=== PATIENT | female | born 1955 | race Caucasian/White ===

== ENCOUNTER 2020-11-12 05:44 | Observation (INO) ==
--- NOTE | 2020-10-07 16:36 | PAT Medication Instructions ---
Medication Instructions Date of Service October 07, 2020 Home Medications acetaminophen [Tylenol Extra Strength] 1,000 mg PO BID PRN albuterol sulfate [Ventolin HFA] 2 puff INHALATION Q6H PRN amlodipine 5 mg PO QAM aspirin [Aspir-81] 81 mg PO HS atorvastatin 10 mg PO HS citalopram 10 mg PO QAM fexofenadine [Gabi] 180 mg PO QAM furosemide 40 mg PO QAM levothyroxine 112 mcg PO QAM losartan-hydrochlorothiazide 1 tab PO QAM multivitamin 1 tab PO QAM pantoprazole 40 mg PO BID DO NOT take the morning of surgery fexofenadine [Gabi] 180 mg PO QAM furosemide 40 mg PO QAM losartan-hydrochlorothiazide 1 tab PO QAM multivitamin 1 tab PO QAM Take morning of surgery With a small sip of water, OTHERWISE NOTHING TO EAT OR DRINK AFTER MIDNIGHT: acetaminophen [Tylenol Extra Strength] 1,000 mg PO BID PRN (if needed, may be taken up to four hours before surgery) albuterol sulfate [Ventolin HFA] 2 puff INHALATION Q6H PRN (if needed, and bring with you to the hospital) amlodipine 5 mg PO QAM citalopram 10 mg PO QAM levothyroxine 112 mcg PO QAM pantoprazole 40 mg PO BID Take evening before surgery acetaminophen [Tylenol Extra Strength] 1,000 mg PO BID PRN (if needed) albuterol sulfate [Ventolin HFA] 2 puff INHALATION Q6H PRN (if needed) aspirin [Aspir-81] 81 mg PO HS atorvastatin 10 mg PO HS pantoprazole 40 mg PO BID Other Notes If you have any questions please call us at [phone] or [phone] or [phone] or [phone]
--- NOTE | 2020-10-08 12:14 | Anesthesiology Consultation ---
Date of Service October 08, 2020 Assessment & Plan (1) Encounter for pre-operative examination: COVID Status: As of 10/08 assessment, patient denies travel to endemic area, known exposure/sick contacts, or symptoms of COVID19. Patient instructed that they and their household members must follow strict social distancing guidelines, wear a mask in public and avoid travel/events/gatherings for 14 days prior to surgery. Preoperative COVID19 testing to be completed prior to surgery per surgeon's arrangements (11/07). Patient made aware to self-isolate as much as possible between COVID testing and surgery. Chart Review Chart Review: Acceptable Risk for Surgery and Patient seen in Pre Admission Testing Teaching & Discussion Instructed NPO after midnight before surgery, except medications with 15 cc of water. Medication instructions provided according to the PAT guidelines. History Surgery Operation Date: 11/12/20 08:35 Proposed Procedures p Right Total Knee Arthroplasty - Kemal Mtz DO Height/Weight Height: 5 ft 1 in Weight: 95.7 kg Allergies Allergy/AdvReac Type Severity Reaction Status Date / Time Penicillins Allergy Unknown HIVES,RASH Verified 10/06/20 13:29 wheat Allergy Unknown GI Verified 10/06/20 13:53 UPSET,DIARRHEA-CELIAC DISEASE Medications Home Medications Medication Instructions Recorded Confirmed Last Taken acetaminophen [Tylenol Extra 1,000 mg PO BID PRN 10/06/20 10/06/20 Unknown Strength] albuterol sulfate [Ventolin HFA] 2 puff INHALATION Q6H PRN 10/06/20 10/06/20 Unknown amlodipine 5 mg PO QAM 10/06/20 10/06/20 Unknown aspirin [Aspir-81] 81 mg PO 10/06/20 10/06/20 Unknown atorvastatin 10 mg PO 10/06/20 10/06/20 Unknown citalopram 10 mg PO QAM 10/06/20 10/06/20 Unknown fexofenadine [Gabi] 180 mg PO QAM 10/06/20 10/06/20 Unknown furosemide 40 mg PO QAM 10/06/20 10/06/20 Unknown levothyroxine 112 mcg PO QAM 10/06/20 10/06/20 Unknown losartan-hydrochlorothiazide 1 tab PO QAM 10/06/20 10/06/20 Unknown multivitamin 1 tab PO QAM 10/06/20 10/06/20 Unknown pantoprazole 40 mg PO BID 10/06/20 10/06/20 Unknown Past Medical History Medical History (Updated 10/08/20 @ 16:12 by Da Perez) Asthma Using inhaler only PRN, on avg once daily. Celiac disease GERD (gastroesophageal reflux disease) Hiatal hernia Hyperlipidemia Hypertension Hypothyroidism Neck pain FULL ROM Osteoarthritis Sleep apnea CPAP, pt reports using every night. Exercise / Class Metabolic Activity II 4-5 Yardwork/Stairs/Walk up hill (Limited by knee pain, some ELENA if more than 6 stairs, no chest pain, does stairs daily at home or uses ramp.) Past Family History Family History Father Family history of diabetes mellitus Mother Family history of diabetes mellitus Son Family history of diabetes mellitus Past Surgical History Surgical History Chronic back pain NECK-HX NERVE ABLATION History of carpal tunnel release RIGHT History of colonoscopy History of esophagogastroduodenoscopy (EGD) History of hand surgery TENDON SURGERY History of herniorrhaphy History of open reduction and internal fixation (ORIF) procedure LEFT ARM-METAL REMAINS History of total knee replacement LEFT-2016 [facility] Nausea and vomiting after administration of anesthetic agent Past Anesthesia History No Hx of Anesthesia Complications and No Family Hx of Anesthesia Complications History of PONV No Hx of Motion Sickness and History of PONV (PONV with GA. With SAB had nausea only.) Social History Smoking Status: Former smoker Do You Dip or Chew Tobacco: No Smoking End Date: QUIT 20 YRS AGO Hx Alcohol Use: No Hx Substance Use: No Review of Systems Pt denies any recent chest pain, shortness of breath, palpitations, cough, fever, URI. + acid reflux if she eats anything after 4 PM. Physical Exam Vital Signs BP: 131/78 P: 84bpm SPO2: 97% RA T: 98.4 F R: 15 ENMT Mouth: + dental restorations (crowns); no chipped teeth and no loose teeth Thyromental Distance: > or= 3.5 Finger Breadths Mallampati Class: I Neck + short neck; neck extension not limited Respiratory normal respiratory effort, lungs clear to auscultation Cardiovascular RRR, no murmur, no edema Testing Laboratory Results 10/08/20 12:28 10/08/20 12:28 PT 10.1 Seconds (9.0-12.0) 10/08/20 12:28 INR 1.0 (0.9-1.1) 10/08/20 12:28 APTT 25.9 Seconds (21.0-31.0) 10/08/20 12:28 Hemoglobin A1c 5.5 % (4.5-5.6) 10/08/20 12:28 Urine Color Yellow 10/08/20 12:28 Urine Appearance Clear (Clear) 10/08/20 12:28 Urine pH 7.5 (4.5-7.5) 10/08/20 12:28 Ur Specific [place] 1.007 (1.000-1.030) 10/08/20 12:28 Urine Protein Negative (Negative) 10/08/20 12:28 Urine Glucose (UA) Negative (Negative) 10/08/20 12:28 Urine Ketones Negative (Negative) 10/08/20 12:28 Urine Nitrite Negative (Negative) 10/08/20 12:28 Ur Leukocyte Esterase Trace (Negative) H 10/08/20 12:28 Urine WBC (Auto) 1-5 /hpf (0-5) 10/08/20 12:28 Urine RBC (Auto) 0-4 /hpf (0-4) 10/08/20 12:28 U Hyaline Cast (Auto) 0 /lpf (0-5) 10/08/20 12:28 U Epithel Cells (Auto) 0-5 /lpf (0-5) 10/08/20 12:28 Urine Bacteria (Auto) Negative (Negative) 10/08/20 12:28 Blood Type A Positive 10/08/20 12:28 Antibody Screen NEGATIVE 10/08/20 12:28 Electrocardiogram Date: 10/08/20 Findings: + NSR @ (70bpm) Chest X-Ray Date: 10/08/20 Findings: + NAD
--- NOTE | 2020-10-08 13:06 | XRay Report ---
XR chest Pre-admission PA/Lat CLINICAL HISTORY: Preoperative evaluation. COMPARISON STUDY: No previous studies for comparison. FINDINGS: Lung volumes are normal. Lungs are clear. There is no pneumothorax or pleural effusion. Car diac size is normal. Mediastinal contours are normal. There is no evidence for pulmonary edema. Incid ental note is made of partially visualized internal fixation hardware within the left humerus. IMPRESSION: No acute cardiopulmonary findings. ACT 112: Negative or not required by law. Electronically signed by: Kris Irvin M.D. 10/08/2020 1:04 PM
[2020-10-08 13:16] LABS: Basophils # (auto) 0.05 K/uL (0-0.2); Basophils % (auto) 0.7 %; Eosinophils # (auto) 0.11 K/uL (0-0.5); Eosinophils % (auto) 1.4 %; Hemoglobin 13.2 g/dL (12.0-16.0); Immature Granulocytes # (auto) 0.03 K/uL (0.00-0.02); Immature Granulocytes % (auto) 0.4 %; Lymphocytes # (auto) 1.96 K/uL (1.2-3.4); Lymphocytes % (auto) 25.5 %; Mean Corpuscular Hemoglobin 31.2 pg (25-34); Mean Corpuscular Hgb Conc 33.8 g/dL (32-36); Mean Corpuscular Volume 92.2 fL (80-100); Mean Platelet Volume 10.6 fL (7.4-10.4); Monocytes # (auto) 0.56 K/uL (0.11-0.59); Monocytes % (auto) 7.3 %; Neutrophils # (auto) 4.97 K/uL (1.4-6.5); Neutrophils % (auto) 64.7 %; Platelet Count 356 K/uL (130-400); RDW Coefficient of Variation 13.2 % (11.5-14.5); RDW Standard Deviation 44.5 fL (36.4-46.3); Red Blood Count 4.23 M/uL (4.2-5.4); White Blood Count 7.68 K/uL (4.8-10.8)
[2020-10-08 13:27] LABS: Partial Thromboplastin Time 25.9 Seconds (21.0-31.0); Prothrombin Time 10.1 Seconds (9.0-12.0)
[2020-10-08 13:29] LABS: Albumin Level 3.9 gm/dl (3.4-5.0); BUN Creatinine Ratio 13.4 (10-20); Calcium 9.9 mg/dl (8.5-10.1); Creatinine Clr Calc Pharmacy 63.4 ml/min; Est GFR (African American) 75.7; Est GFR (Non-African American) 65.3; Potassium 3.8 mmol/L (3.5-5.1)
[2020-10-08 13:35] LABS: Appearance Urine Clear (Clear); Bacteria Urine Automated Negative (Negative); Bilirubin Urine Negative (Negative); Blood Urine Negative (Negative); Cast Urine Automated 0 /lpf (0-5); Color Urine Yellow; Epithelial Cell Urine Auto 0-5 /lpf (0-5); Glucose Urine UA Negative (Negative); Ketones Urine Negative (Negative); Leukocyte Esterase Urine Trace (Negative); Nitrite Urine Negative (Negative); Protein Urine Negative (Negative); RBC Urine Automated 0-4 /hpf (0-4); Specific Gravity Urine 1.007 (1.000-1.030); Urobilinogen Urine Negative (Negative); pH Urine 7.5 (4.5-7.5)
[2020-10-08 14:01] LABS: Estimated Average Glucose 111 mg/dl; Hemoglobin A1C 5.5 % (4.5-5.6)
--- NOTE | 2020-10-08 15:33 | Electrocardiogram Report ---
Test Reason : Blood Pressure : / mmHG Vent. Rate : 070 BPM Atrial Rate : 070 BPM P-R Int : 158 ms QRS Dur : 084 ms QT Int : 414 ms P-R-T Axes : 063 054 061 degrees QTc Int : 447 ms Normal sinus rhythm Normal ECG No previous ECGs available Confirmed by Mauri Flannery ([id number]) on 10/08/2020 3:33:17 PM Referred By: Kemal Mtz Confirmed By:Mauri Flannery
--- NOTE | 2020-10-30 11:54 | History & Physical Report ---
Date of Service October 30, 2020 date of surgery: 11/12/20 Procedure: Right Total Knee Arthroplasty Assessment & Plan (1) Arthritis of right knee: Further care discussed with patient and at this point in time has failed conservative measures and would like to proceed with a right total knee r eplacement. Plan on discharge will be home with home physical therapy. DVT prophalaxis with TEDs, SCDs and will also place on aspirin 81 mg p.o. b.i.d. for a month postop. Patient will have follow up appointment in our office two weeks post op for staple/suture removal and re-evaluation. Patient otherwise has no other questions or concerns. The risks and benefits have been discussed including, but not limited to, risk of infection, nerve injury, stiffness, loss of motion, failure to improve, etc. Reasonable outcomes and options of treatment were discussed. An explanation of appropriate alternatives to the procedure that may be advantageous were discussed and their risks and benefits, as well as the risks and benefits of not proceeding with treatment. I offered to answer any additional inquiries concerning the treatment involved. All the patient's questions were answered. The patient is agreeable, understanding of the treatment plan and alternatives, and wishes to proceed with the treatment plan. History of Present Illness Chief Complaint: Right knee pain Primary Care Provider: Hannah Cookdrake Whittaker is a 65 year old who complains of right knee pain, presents for pre-op evaluation prior to a right total knee replacement by dr Mtz at [facility]. she complains of pain, crepitus, decreased range of motion, instability and stiffness in her right knee. she states that the symptoms have been chronic and non-traumatic. currently the patient states that the symptoms are moderate- severe. The pain is described as aching, sharp and throbbing. The symptoms occur continuously. The symptoms are aggravated by ascending stairs, daily activities, first steps while awake walking. Prior NSAIDs include Motin and Aleve. Prior pain medications include OTC Tylenol. Allergies Allergy/AdvReac Type Severity Reaction Status Date / Time Penicillins Allergy Unknown HIVES,RASH Verified 10/06/20 13:29 wheat Allergy Unknown GI Verified 10/06/20 13:53 UPSET,DIARRHEA-CELIAC DISEASE Home Medications Medication Instructions Recorded Confirmed Type acetaminophen [Tylenol Extra 1,000 mg PO BID PRN 10/06/20 10/06/20 History Strength] albuterol sulfate [Ventolin HFA] 2 puff INHALATION Q6H PRN 10/06/20 10/06/20 History amlodipine 5 mg PO QAM 10/06/20 10/06/20 History aspirin [Aspir-81] 81 mg PO HS 10/06/20 10/06/20 History atorvastatin 10 mg PO HS 10/06/20 10/06/20 History citalopram 10 mg PO QAM 10/06/20 10/06/20 History fexofenadine [Gabi] 180 mg PO QAM 10/06/20 10/06/20 History furosemide 40 mg PO QAM 10/06/20 10/06/20 History levothyroxine 112 mcg PO QAM 10/06/20 10/06/20 History losartan-hydrochlorothiazide 1 tab PO QAM 10/06/20 10/06/20 History multivitamin 1 tab PO QAM 10/06/20 10/06/20 History pantoprazole 40 mg PO BID 10/06/20 10/06/20 History Past Med/Surg History Medical History Asthma Using inhaler only PRN, on avg once daily. Celiac disease GERD (gastroesophageal reflux disease) Hiatal hernia Hyperlipidemia Hypertension Hypothyroidism Neck pain FULL ROM Osteoarthritis Sleep apnea CPAP, pt reports using every night. Surgical History Chronic back pain NECK-HX NERVE ABLATION History of carpal tunnel release RIGHT History of colonoscopy History of esophagogastroduodenoscopy (EGD) History of hand surgery TENDON SURGERY History of herniorrhaphy History of open reduction and internal fixation (ORIF) procedure LEFT ARM-METAL REMAINS History of total knee replacement LEFT-2017 [facility] Nausea and vomiting after administration of anesthetic agent Family History Father Family history of diabetes mellitus Mother Family history of diabetes mellitus Son Family history of diabetes mellitus Social History Smoking Status: Former smoker Smoking End Date: QUIT 20 YRS AGO; Second Hand Exposure: Yes (FATHER SMOKED); Do You Dip or Chew Tobacco: No; Hx Alcohol Use: No Hx Substance Use: No Preferred Language: Mongolian Communication Ability: Effective Plumber Helper Required: No Beliefs That Will Affect Care: None Current Living Situation: Spouse Other Information That Helps Us Care for You: No Feels Safe at Home: Yes Safety Concerns: Feels Safe At This Time Assistive Devices: Glasses Review of Systems Review of Systems: All systems reviewed & are unremarkable except as noted in HPI & below Constitutional: no fever, no chills and no sweats Respiratory: no cough and no dyspnea Cardiovascular: no chest pain, no dyspnea and no orthopnea Gastrointestinal: no abdominal pain, no nausea and no vomiting Musculoskeletal: as per Subjective / HPI Physical Exam Physical Exam: HT: 5ft 1in WT: 95.7kg Constitutional: WD/WN, vitals as above no acute distress Respiratory: normal respiratory effort, lungs clear to auscultation no respiratory distress, no labored breathing and does not use accessory muscles Cardiovascular: RRR, no murmur, no edema Gastrointestinal (Abdomen): normal bowel sounds, soft, nontender, no hepatosplenomegaly Musculoskeletal: Knee: + knee abnormal to inspection (Right Knee), + effusion (+1 effusion), + limited ROM of knee (ROM 0/3/110), + knee ROM with crepitation, + joint line tenderness (medial joint line) and + Baism's sign positive; no deformity, no skin erythema, no ecchymosis, no valgus laxity, no varus laxity, anterior drawer test negative, Wally's sign negative and pivot shift test negative Results & Data Results & Data ([facility]) Laboratory Results Laboratory Results WBC 7.68 K/uL (4.8-10.8) 10/08/20 12:28 RBC 4.23 M/uL (4.2-5.4) 10/08/20 12:28 Hgb 13.2 g/dL (12.0-16.0) 10/08/20 12:28 Hct 39.0 % (37-47) 10/08/20 12:28 MCV 92.2 fL (80-100) 10/08/20 12:28 MCH 31.2 pg (25-34) 10/08/20 12:28 MCHC 33.8 g/dL (32-36) 10/08/20 12:28 RDW Std Deviation 44.5 fL (36.4-46.3) 10/08/20 12:28 RDW Coeff of [place] 13.2 % (11.5-14.5) 10/08/20 12:28 Plt Count 356 K/uL (130-400) 10/08/20 12:28 MPV 10.6 fL (7.4-10.4) H 10/08/20 12:28 Immature Gran % (Auto) 0.4 % 10/08/20 12:28 Neut % (Auto) 64.7 % 10/08/20 12:28 Lymph % (Auto) 25.5 % 10/08/20 12:28 [place] % (Auto) 7.3 % 10/08/20 12:28 Eos % (Auto) 1.4 % 10/08/20 12:28 Baso % (Auto) 0.7 % 10/08/20 12:28 Neut # (Auto) 4.97 K/uL (1.4-6.5) 10/08/20 12:28 Lymph # (Auto) 1.96 K/uL (1.2-3.4) 10/08/20 12:28 [place] # (Auto) 0.56 K/uL (0.11-0.59) 10/08/20 12:28 Eos # (Auto) 0.11 K/uL (0-0.5) 10/08/20 12:28 Baso # (Auto) 0.05 K/uL (0-0.2) 10/08/20 12:28 Immature Gran # (Auto) 0.03 K/uL (0.00-0.02) H 10/08/20 12:28 PT 10.1 Seconds (9.0-12.0) 10/08/20 12:28 INR 1.0 (0.9-1.1) 10/08/20 12:28 APTT 25.9 Seconds (21.0-31.0) 10/08/20 12:28 PTT Ratio 1.0 10/08/20 12:28 Sodium 140 mmol/L (136-145) 10/08/20 12:28 Potassium 3.8 mmol/L (3.5-5.1) 10/08/20 12:28 Chloride 107 mmol/L (98-107) 10/08/20 12:28 Carbon Dioxide 26 mmol/L (21-32) 10/08/20 12:28 Anion Gap 7.0 (3-11) 10/08/20 12:28 BUN 12 mg/dl (7-18) 10/08/20 12:28 Creatinine 0.91 mg/dl (0.6-1.2) 10/08/20 12:28 Est Cr Clr Drug Dosing 63.4 ml/min 10/08/20 12:28 Est GFR ( Amer) 75.7 10/08/20 12:28 Est GFR (Non-Af Amer) 65.3 10/08/20 12:28 BUN/Creatinine Ratio 13.4 (10-20) 10/08/20 12:28 Glucose 96 mg/dl (70-99) 10/08/20 12:28 Estimat Average Glucose 111 mg/dl 10/08/20 12:28 Hemoglobin A1c 5.5 % (4.5-5.6) 10/08/20 12:28 Calcium 9.9 mg/dl (8.5-10.1) 10/08/20 12:28 Albumin 3.9 gm/dl (3.4-5.0) 10/08/20 12:28 Urine Color Yellow 10/08/20 12:28 Urine Appearance Clear (Clear) 10/08/20 12:28 Urine pH 7.5 (4.5-7.5) 10/08/20 12:28 Ur Specific [place] 1.007 (1.000-1.030) 10/08/20 12:28 Urine Protein Negative (Negative) 10/08/20 12:28 Urine Glucose (UA) Negative (Negative) 10/08/20 12:28 Urine Ketones Negative (Negative) 10/08/20 12:28 Urine Blood Negative (Negative) 10/08/20 12:28 Urine Nitrite Negative (Negative) 10/08/20 12:28 Urine Bilirubin Negative (Negative) 10/08/20 12:28 Urine Urobilinogen Negative (Negative) 10/08/20 12:28 Ur Leukocyte Esterase Trace (Negative) H 10/08/20 12:28 Urine WBC (Auto) 1-5 /hpf (0-5) 10/08/20 12:28 Urine RBC (Auto) 0-4 /hpf (0-4) 10/08/20 12:28 U Hyaline Cast (Auto) 0 /lpf (0-5) 10/08/20 12:28 U Epithel Cells (Auto) 0-5 /lpf (0-5) 10/08/20 12:28 Urine Bacteria (Auto) Negative (Negative) 10/08/20 12:28 Blood Type A Positive 10/08/20 12:28 Antibody Screen NEGATIVE 10/08/20 12:28 Diagnostic Findings Right Knee X-ray: Right knee series showing advanced degenerative changes to the right knee, narrowing of the medial compartment and patello-femoral joint with patellar spurring noted, findings showing joint space narrowing of the medial compartment and patello-femoral joint, osteophyte formation and subchondral sclerosis noted. overall varus alignment. no acute bony pathology noted.
[2020-11-12] MEDS ORDERED: METOCLOPRAMIDE HCL 10 MG TABLET PO SCH (06:00)
[2020-11-12] MEDS ORDERED: FAMOTIDINE 20 MG TAB PO SCH (06:00)
[2020-11-12] MEDS ORDERED: dexAMETHasone 4 MG TAB PO SCH (06:00)
[2020-11-12] MEDS ORDERED: TRANEXAMIC ACID 1,000 MG **IV Intra-op IV SCH (06:00)
[2020-11-12] MEDS ORDERED: GABAPENTIN 300 MG CAP PO SCH (06:00)
[2020-11-12] MEDS ORDERED: CeleBREX 200 MG CAP PO SCH (06:00)
[2020-11-12] MEDS ORDERED: ROPIVACAINE 0.5% HCL/PF 150 MG, BUPIVACAINE 0.75% MPF 20 ML, EPINEPHrine 30MG/30ML (OR ... INSTIL SCH (06:00)
[2020-11-12] MEDS ORDERED: ceFAZolin 2000MG 2,000 MG/15 ML SYR IV SCH (06:00)
[2020-11-12] MEDS ORDERED: Scopolamine 1 MG TDSY TD SCH (06:00)
[2020-11-12] MEDS ORDERED: TRANEXAMIC ACID 1,000 MG **IV Pre-op IV SCH (06:00)
[2020-11-12] MEDS ORDERED: LR 500ML BOLUS, THEN 15ML/HR IV SCH (06:00)
[2020-11-12] MEDS ORDERED: ACETAMINOPHEN 500 MG TAB PO SCH (06:00)
[2020-11-12] MEDS ORDERED: BUPIVACAINE 0.5 % 5 MG/1 ML PF 10ML VIAL ONE (06:25)
[2020-11-12] MEDS ORDERED: EPINEPHrine INJ 1 MG/ML AMP ONE (06:25)
[2020-11-12] MEDS ORDERED: DEXAMETHASONE SOD INJ 4 MG/ML VIAL ONE (06:26)
[2020-11-12] MEDS ORDERED: BUPIVACAINE 0.25% 30 ML VIAL ONE (06:26)
[2020-11-12] MEDS ORDERED: PROPOFOL IV EMULSION 10 MG/ML 20 ML VIAL IV ONE (06:54)
[2020-11-12] MEDS ORDERED: LIDOCAINE HCL 2% 2 ML VIAL/AMP(20MG/ML) INFIL ONE (06:54)
[2020-11-12] MEDS ORDERED: fentaNYL citrate 100 MCG/2 ML VIAL ONE (06:55)
[2020-11-12] MEDS ORDERED: MIDAZOLAM HCL 1 MG/ML 2ML VIAL ONE ×2 (06:55→08:37)
[2020-11-12] MEDS ORDERED: ONDANSETRON INJ 2 MG/ML 2 ML VIAL ONE (06:58)
[2020-11-12] MEDS ORDERED: CLINDAMYCIN 600 MG/54 ML D5W IV ONE (07:10)
--- NOTE | 2020-11-12 07:12 | History & Physical Bridge Note ---
Date of Service November 12, 2020 History & Physical Bridge Note I have examined the patient, reviewed the History & Physical and in the interval since the performance of the History & Physical I have noted the following changes of clinical significance: no changes noted
[2020-11-12] MEDS ORDERED: BACITRACIN INJ 50,000 UNIT VIAL ONE (07:35)
[2020-11-12] MEDS ORDERED: ORTHO JOINT ANESTHETIC ONE (07:35)
[2020-11-12] MEDS ORDERED: fentaNYL citrate 100 MCG/2 ML VIAL IV PRN (07:59)
[2020-11-12] MEDS ORDERED: ePHEDrine sulfate 50 MG/ML AMP IV PRN (07:59)
[2020-11-12] MEDS ORDERED: ATROPINE SULFATE 0.1 MG/ML 10ML SYR IV PRN (07:59)
[2020-11-12] MEDS ORDERED: ONDANSETRON INJ 2 MG/ML 2 ML VIAL IV PRN ×2 (07:59→11:34)
--- NOTE | 2020-11-12 09:23 | Operative Report ---
Post Operative Report Pre & Post Diagnosis Operation Date: 11/12/20 08:20 Pre-Op Diagnosis: Unilateral Primary Osteoarthritis of Right Knee Post-Op Diagnosis: Unilateral Primary Osteoarthritis of Right Knee I identified the patient and participated in the time-out.: Yes Procedure Operation Date: 11/12/20 08:20 Actual Procedures p Right Total Knee Arthroplasty(Right) utilizing Guillen & NephAbloomy journey 2 patient matched total knee arthroplasty size 5 femur 4 tibia 13 polyethylene 29 oval patella- Kemal Mtz DO Surgeon Kemal Mtz DO Clearing Inspector Salas AGUIRRE Estimated Blood Loss 5 Findings Consistent with Post-Op Diagnosis Patient presents with severe end-stage DJD right knee no response to conservative management patient still has subchondral sclerosis marginal osteophytes eburnated [id number] subchondral cystic changes moderate to large effusion varus alignment Specimens Bone and cartilage Drains Medium bore Hemovac Anesthesia Type MAC Spinal Regional Complications none Disposition Accompanied Patient To Recovery: No Disposition: Recovery Room Indications Patient presents with severe end-stage DJD having failed attempted conservative management clinic physical therapy anti-inflammatories relative rest activity modification corticosteroid injection Visco supplementation the above intraoperative findings were noted. Description of Procedure After proper prepping and draping of the Right lower extremity anterior midline incision was made over the region of the extensor extensor mechanism after meticulous hemostasis was obtained and maintained in subcutaneous tissues a medial parapatellar incision was made The patella was subluxed lateralward the medial lateral gutter were cleaned from any hypertrophic synovitis and scar tissue of the distal femoral block was placed and the distal femoral osteotomy cut was made subsequently the chamfers anterior and posterior osteotomy cuts were made utilizing the 4-in-1 block the tibia was subsequently subluxed anteriorward medial and ateral meniscal remnants were excised in their entirety remnants of the anterior and posterior cruciate ligaments were excised in their entirety excellent exposure of the proximal tibia was obtained the tibial osteotomy guide was placed on the proximal tibial osteotomy cut was made once again the knee was irrigated with copious amounts of sterile saline solution the patella was subsequently everted lateralward thickened scar tissue around the patella was removed the patella was subsequently cut utilizing a freehand technique and was drilled prepared for final preparation and placement of patella socially flexion-extension gaps were checked and the equal and symmetric trials were placed to the appropriate femoral and tibial trials with poly-spacer being placed for equal flexion and extension gaps and full range of motion including extension to 0 and flexion to 140 the trial components after having been taken to recovery range of motion was subsequently removed meticulous hemostasis was obtained and maintained subsequently a knee block injection of joint cocktail including ropivacaine 0.5% 150 mg. Bupivacaine 0.5% epinephrine 1-200,030 mL's toradol 30 mg dexamethasone 4 mg ketamine 10 mg clonidine 100 micrograms normal saline solution 30 mg was infiltrated into the soft tissues of the posterior knee medial lateral gutters and periosteal synovium special attention was paid to protect neurovascular structures at all times subsequently trial components having been removed the knee was irrigated with sterile saline solution. debris was removed the proximal tibia was subsequently prepared and was made ready for the placement of the tibial component tibial component was also cemented and tamped into position the femoral component was subsequently placed and cemented in the position the patellar component was subsequently cemented in position because hemostasis once again obtained and maintained wound having been thoroughly irrigated with debridement and debridement lavage was performed as well as a medial parapatellar incision closed with #1 Vicryl in interrupted fashion subcutaneous was closed with #2 Vicryl skin was closed with skin clips. PA-C was necessary for prepping and drapping as well as wound closure of deep fascia Sub cutaneous tissue and skin and was necessary for the case. A sterile compressive dressing was placed patient was taken to recovery in stable condition of report dictated by Smith I attest to the content of the Intraoperative Record and any orders documented therein. Any exceptions are noted below. I attest to the content of the Intraoperative Record and any orders documented therein. Any exceptions are noted below.
--- NOTE | 2020-11-12 10:23 | Anesthesiology Progress Note ---
Date of Service November 12, 2020 Anesthesia Post Procedure Vital Signs Vital Signs: Temp Pulse Pulse Resp BP Pulse Ox 11/12/20 10:19 67 20 110/63 92 11/12/20 10:10 67 18 119/59 L 94 11/12/20 10:04 36.5 C 73 16 127/62 98 11/12/20 06:45 36.8 C 98 H 20 163/89 H 97 Pain Intensity Left Knee: Pain Intensity: 3 Transfer of Care Handoff Completed per policy Notes Mental Status: alert / awake / arousable Patient Amnestic to Procedure: Yes Nausea / Vomiting: adequately controlled Pain: adequately controlled Airway Patency, RR, SpO2: stable & adequate BP & HR: stable & adequate Hydration State: stable & adequate Neuraxial Anesthesia: was administered and sensory block is resolving Anesthetic Complications: no major complications apparent and Pt Satisfied with anesthetic care
--- NOTE | 2020-11-12 10:59 | XRay Report ---
XR knee RT 1 or 2V routine HISTORY: 65 years-old Female Surgical Post Op right knee total joint arthroplasty COMPARISON: None TECHNIQUE: 2 views of the right knee FINDINGS: Right knee total joint arthroplasty and patella resurfacing. Anterior midline skin [place] are noted along with expected postsurgical soft tissue swelling and deep tissue air with surgical drainage cath eter. No acute fracture, malalignment or opaque foreign body. IMPRESSION: Right knee total joint arthroplasty with expected postoperative changes. ACT 112: Negative or not required by law. The above report was generated using voice recognition software. It may contain grammatical, syntax o r spelling errors. Electronically signed by: Jemal Cm M.D. 11/12/2020 10:58 AM
[2020-11-12] MEDS ORDERED: bisacodyL 10 MG SUPP PR PRN (11:34)
[2020-11-12] MEDS ORDERED: ALBUTEROL HFA 8 GM INHALER INH PRN (11:34)
[2020-11-12] MEDS ORDERED: MAGNESIUM HYDROXIDE SUSP 30 ML UDC PO PRN (11:34)
[2020-11-12] MEDS ORDERED: HYDROmorphone INJ 0.5 MG/0.5 ML SYR IV PRN (11:34)
[2020-11-12] MEDS ORDERED: NALOXONE HCL 0.4 MG/1 ML VIAL/CARP IV PRN (11:34)
[2020-11-12] MEDS: SODIUM CHLORIDE 0.9% 1000ML 1,000 ML IV SCH (13:38)
[2020-11-12] MEDS: ACETAMINOPHEN 500 MG TAB PO SCH ×2 (14:02→21:40)
[2020-11-12] MEDS ORDERED: Scopolamine CHECK PATCH PLACEMENT SCH (16:00)
[2020-11-12] MEDS: CLINDAMYCIN 600 MG in DEXTROSE 5% 50 ML IV SCH (17:42)
[2020-11-12] MEDS: FERROUS GLUCONATE 324 MG TAB PO SCH (17:42)
[2020-11-12] MEDS ORDERED: SENNA 8.6 MG TAB PO SCH (21:00)
[2020-11-12] MEDS ORDERED: ATORVASTATIN 10 MG TAB PO SCH (21:00)
[2020-11-12] MEDS: ASPIRIN 81 MG ECTAB PO SCH (21:40)
[2020-11-12] MEDS: DOCUSATE SODIUM 100 MG CAP PO SCH (21:40)
[2020-11-12] MEDS: PANTOprazole 40 MG TAB PO SCH (21:40)
[2020-11-12] MEDS: oxyCODONE HCL IR 5 MG TAB (IMMEDIATE RELEASE) PO PRN (23:19)
[2020-11-13] MEDS: SODIUM CHLORIDE 0.9% 1000ML 1,000 ML IV SCH (00:15)
[2020-11-13] MEDS: CLINDAMYCIN 600 MG in DEXTROSE 5% 50 ML IV SCH (02:21)
[2020-11-13] MEDS: ACETAMINOPHEN 500 MG TAB PO SCH ×2 (05:38→13:15)
[2020-11-13 06:25] LABS: Hematocrit (blood only) 32.4 % (37-47); Hemoglobin 11.1 g/dL (12.0-16.0); Mean Corpuscular Hemoglobin 31.1 pg (25-34); Mean Corpuscular Hgb Conc 34.3 g/dL (32-36); Mean Corpuscular Volume 90.8 fL (80-100); Mean Platelet Volume 10.1 fL (7.4-10.4); Platelet Count 283 K/uL (130-400); RDW Coefficient of Variation 12.7 % (11.5-14.5); RDW Standard Deviation 42.3 fL (36.4-46.3); Red Blood Count 3.57 M/uL (4.2-5.4); White Blood Count 13.03 K/uL (4.8-10.8)
[2020-11-13] MEDS ORDERED: LEVOTHYROXINE SODIUM 112 MCG TABLET PO SCH (06:30)
[2020-11-13 06:54] LABS: BUN Creatinine Ratio 20.9 (10-20); Calcium 7.9 mg/dl (8.5-10.1); Creatinine Clr Calc Pharmacy 58.5 ml/min; Est GFR (African American) 68.3; Potassium 4.4 mmol/L (3.5-5.1)
[2020-11-13] MEDS: DOCUSATE SODIUM 100 MG CAP PO SCH (08:45)
[2020-11-13] MEDS: ASPIRIN 81 MG ECTAB PO SCH (08:45)
--- NOTE | 2020-11-13 08:45 | Orthopedic Progress Note ---
Date of Service November 13, 2020 Assessment & Plan (1) Arthritis of right knee: Postop day 1 status post right total knee arthroplasty. Mild leukocytosis-likely due to surgical stress and or preoperative steroids. Patient is asymptomatic at this time. PT/OT protocols. Weightbearing as tolerated. DVT prophylaxis-aspirin p.o. twice daily, SCDjanay, BETO holland. Pain management as written. DC planning-patient is planning on outpatient PT upon discharge. Admission and Anticipated Discharge Date Admission Date: November 12, 2020 Subjective Postop day 1 Patient is currently lying in bed sitting up. She is awake and alert. No complaints this morning. Pain is controlled. Denies shortness of breath, chest pain, lightheadedness. Physical Exam Physical Exam: Dressings are clean, dry, and intact. Calves are soft nontender. Neurovascular intact. Toes are mobile. She has good dorsiflexion plantarflexion of the right foot. Hemovac drainage was 75 mL from the previous shift. Results & Data ([facility]) Vital Signs (Past 12 Hours) Vital Signs Temp Pulse Resp BP Pulse Ox 11/13/20 07:14 36.6 C 56 L 16 127/77 92 11/13/20 02:25 36.5 C 57 L 14 111/72 95 11/12/20 23:18 36.6 C 60 20 128/75 92 Laboratory Results Laboratory Results WBC 13.03 K/uL (4.8-10.8) H 11/13/20 06:10 RBC 3.57 M/uL (4.2-5.4) L 11/13/20 06:10 Hgb 11.1 g/dL (12.0-16.0) L 11/13/20 06:10 Hct 32.4 % (37-47) L 11/13/20 06:10 MCV 90.8 fL (80-100) 11/13/20 06:10 MCH 31.1 pg (25-34) 11/13/20 06:10 MCHC 34.3 g/dL (32-36) 11/13/20 06:10 RDW Std Deviation 42.3 fL (36.4-46.3) 11/13/20 06:10 RDW Coeff of Frederick 12.7 % (11.5-14.5) 11/13/20 06:10 Plt Count 283 K/uL (130-400) 11/13/20 06:10 MPV 10.1 fL (7.4-10.4) 11/13/20 06:10 Immature Gran % (Auto) 0.4 % 10/08/20 12:28 Neut % (Auto) 64.7 % 10/08/20 12:28 Lymph % (Auto) 25.5 % 10/08/20 12:28 Roseau % (Auto) 7.3 % 10/08/20 12:28 Eos % (Auto) 1.4 % 10/08/20 12:28 Baso % (Auto) 0.7 % 10/08/20 12:28 Neut # (Auto) 4.97 K/uL (1.4-6.5) 10/08/20 12:28 Lymph # (Auto) 1.96 K/uL (1.2-3.4) 10/08/20 12:28 Roseau # (Auto) 0.56 K/uL (0.11-0.59) 10/08/20 12:28 Eos # (Auto) 0.11 K/uL (0-0.5) 10/08/20 12:28 Baso # (Auto) 0.05 K/uL (0-0.2) 10/08/20 12:28 Immature Gran # (Auto) 0.03 K/uL (0.00-0.02) H 10/08/20 12:28 PT 10.1 Seconds (9.0-12.0) 10/08/20 12:28 INR 1.0 (0.9-1.1) 10/08/20 12:28 APTT 25.9 Seconds (21.0-31.0) 10/08/20 12:28 PTT Ratio 1.0 10/08/20 12:28 Sodium 135 mmol/L (136-145) L 11/13/20 06:10 Potassium 4.4 mmol/L (3.5-5.1) 11/13/20 06:10 Chloride 106 mmol/L (98-107) 11/13/20 06:10 Carbon Dioxide 22 mmol/L (21-32) 11/13/20 06:10 Anion Gap 7.0 (3-11) 11/13/20 06:10 BUN 21 mg/dl (7-18) H 11/13/20 06:10 Creatinine 0.99 mg/dl (0.6-1.2) 11/13/20 06:10 Est Cr Clr Drug Dosing 58.5 ml/min 11/13/20 06:10 Est GFR ( Amer) 68.3 11/13/20 06:10 Est GFR (Non-Af Amer) 59.0 11/13/20 06:10 BUN/Creatinine Ratio 20.9 (10-20) H 11/13/20 06:10 Glucose 117 mg/dl (70-99) H 11/13/20 06:10 Estimat Average Glucose 111 mg/dl 10/08/20 12:28 Hemoglobin A1c 5.5 % (4.5-5.6) 10/08/20 12:28 Calcium 7.9 mg/dl (8.5-10.1) L 11/13/20 06:10 Albumin 3.9 gm/dl (3.4-5.0) 10/08/20 12:28 Urine Color Yellow 10/08/20 12:28 Urine Appearance Clear (Clear) 10/08/20 12:28 Urine pH 7.5 (4.5-7.5) 10/08/20 12:28 Ur Specific Irving 1.007 (1.000-1.030) 10/08/20 12:28 Urine Protein Negative (Negative) 10/08/20 12:28 Urine Glucose (UA) Negative (Negative) 10/08/20 12:28 Urine Ketones Negative (Negative) 10/08/20 12:28 Urine Blood Negative (Negative) 10/08/20 12:28 Urine Nitrite Negative (Negative) 10/08/20 12:28 Urine Bilirubin Negative (Negative) 10/08/20 12:28 Urine Urobilinogen Negative (Negative) 10/08/20 12:28 Ur Leukocyte Esterase Trace (Negative) H 10/08/20 12:28 Urine WBC (Auto) 1-5 /hpf (0-5) 10/08/20 12:28 Urine RBC (Auto) 0-4 /hpf (0-4) 10/08/20 12:28 U Hyaline Cast (Auto) 0 /lpf (0-5) 10/08/20 12:28 U Epithel Cells (Auto) 0-5 /lpf (0-5) 10/08/20 12:28 Urine Bacteria (Auto) Negative (Negative) 10/08/20 12:28 Blood Type A Positive 10/08/20 12:28 Antibody Screen NEGATIVE 10/08/20 12:28 Impressions Knee X-Ray 11/12/20 10:20 XR knee RT 1 or 2V routine HISTORY: 65 years-old Female Surgical Post Op right knee total joint arthroplasty COMPARISON: None TECHNIQUE: 2 views of the right knee FINDINGS: Right knee total joint arthroplasty and patella resurfacing. Anterior midline skin [place] are noted along with expected postsurgical soft tissue swelling and deep tissue air with surgical drainage catheter. No acute fracture, malalignment or opaque foreign body. IMPRESSION: Right knee total joint arthroplasty with expected postoperative changes. ACT 112: Negative or not required by law. The above report was generated using voice recognition software. It may contain grammatical, syntax or spelling errors. Electronically signed by: Jemal Cm M.D. 11/12/2020 10:58 AM
[2020-11-13] MEDS: PANTOprazole 40 MG TAB PO SCH (08:46)
[2020-11-13] MEDS: FERROUS GLUCONATE 324 MG TAB PO SCH (08:46)
[2020-11-13] MEDS: oxyCODONE HCL IR 5 MG TAB (IMMEDIATE RELEASE) PO PRN (08:52)
[2020-11-13] MEDS ORDERED: FEXOFENADINE HCL 180 MG TAB PO SCH (09:00)
[2020-11-13] MEDS ORDERED: FUROSEMIDE 40 MG TAB PO SCH (09:00)
[2020-11-13] MEDS ORDERED: LOSARTAN/HCTZ 50/12.5MG TAB PO SCH (09:00)
[2020-11-13] MEDS ORDERED: MULTIVITAMIN TAB PO SCH (09:00)
[2020-11-13] MEDS ORDERED: CITALOPRAM 20 MG TAB PO SCH (09:00)
[2020-11-13] MEDS ORDERED: amLODIPine BESYLATE 5 MG TAB PO SCH (09:00)
--- NOTE | 2020-11-14 12:52 | Discharge Summary ---
Date of Service November 14, 2020 Admission HPI Per Admitting Provider Remedios is a 65 year old who complains of right knee pain, presents for pre-op evaluation prior to a right total knee replacement by dr Mtz at [facility]. she complains of pain, crepitus, decreased range of motion, instability and stiffness in her right knee. she states that the symptoms have been chronic and non-traumatic. currently the patient states that the symptoms are moderate- severe. The pain is described as aching, sharp and throbbing. The symptoms occur continuously. The symptoms are aggravated by ascending stairs, daily activities, first steps while awake walking. Prior NSAIDs include Motin and Aleve. Prior pain medications include OTC Tylenol. Admission Exam Per Admitting Provider Physical Exam: HT: 5ft 1in WT: 95.7kg Constitutional: WD/WN, vitals as above no acute distress Respiratory: normal respiratory effort, lungs clear to auscultation no respiratory distress, no labored breathing and does not use accessory muscles Cardiovascular: RRR, no murmur, no edema Gastrointestinal (Abdomen): normal bowel sounds, soft, nontender, no hepatosplenomegaly Musculoskeletal: Knee: + knee abnormal to inspection (Right Knee), + effusion (+1 effusion), + limited ROM of knee (ROM 0/3/110), + knee ROM with crepitation, + joint line tenderness (medial joint line) and + Basim's sign positive; no deformity, no skin erythema, no ecchymosis, no valgus laxity, no varus laxity, anterior drawer test negative, Wally's sign negative and pivot shift test negative Principal Diagnosis Right knee DJD Discharge Data Allergies Allergy/AdvReac Type Severity Reaction Status Date / Time Penicillins Allergy Unknown HIVES,RASH Verified 11/12/20 06:35 wheat Allergy Unknown GI Verified 11/12/20 06:35 UPSET,DIARRHEA-CELIAC DISEASE Procedures Performed Operation Date: 11/12/20 08:20 Actual Procedures p Right Total Knee Arthroplasty(Right) - Kemal Mtz DO Ordered Studies 11/12/20 05:00 US - OR guided needle placemen Routine Hospital Course (1) Arthritis of right knee: Gracia CARLISLE Date: 11/12/20#: [id number] Phy: Kemal Mtz,D.O.Acct ID:[id number] Phy: SalHannah Amin M.D. Date: [id number] Phy:Age: 65Location: 3ESex: F Room/Bed: E306-1 cc: ~ *NOTICE TO RECEIVING REPUBLICAN/AGENCY This information is strictly Confidential and protected under [place] law. [place] law prohibits you from makin g any further disclosure of this information unless further disclosure is expressly permitted by the written consent of the person to whom it pertains or is authorized by law. A general authorization for the release of medical or other information is not sufficient for this purpose. Hospital accepts no responsibility if the information is made available to any other person, INCLUDING THE PATIENT. Date of Service November 13, 2020 Assessment & Plan (1) Arthritis of right knee: Postop day 1 status post right total knee arthroplasty. Mild leukocytosis-likely due to surgical stress and or preoperative steroids. Patient is asymptomatic at this time. PT/OT protocols. Weightbearing as tolerated. DVT prophylaxis-aspirin p.o. twice daily, SCDs, BETO hose. Pain management as written. DC planning-patient is planning on outpatient PT upon discharge. Admission and Anticipated Discharge Date Admission Date: November 12, 2020 Subjective Postop day 1 Patient is currently lying in bed sitting up. She is awake and alert. No complaints this morning. Pain is controlled. Denies shortness of breath, chest pain, lightheadedness. Physical Exam Physical Exam: Dressings are clean, dry, and intact. Calves are soft nontender. Neurovascular intact. Toes are mobile. She has good dorsiflexion plantarflexion of the right foot. Hemovac drainage was 75 mL from the previous shift. Results & Data ([facility]) Vital Signs (Past 12 Hours) Vital Signs Temp Pulse Resp BP Pulse Ox 11/13/20 07:14 36.6 C 56 L 16 127/77 92 11/13/20 02:25 36.5 C 57 L 14 111/72 95 11/12/20 23:18 36.6 C 60 20 128/75 92 Laboratory Results Laboratory Results WBC 13.03 K/uL (4.8-10.8) H 11/13/20 06:10 RBC 3.57 M/uL (4.2-5.4) L 11/13/20 06:10 Hgb 11.1 g/dL (12.0-16.0) L 11/13/20 06:10 Hct 32.4 % (37-47) L 11/13/20 06:10 Total Time Total Time Spent Total Time Spent (In Minutes): 5 Discharge Plan Discharge Items Patient Disposition: Home - Self-Care Reason For Visit: Unilateral Primary Osteoarthritis of Right Knee Discharge Diagnosis: Osteoarthritis right knee Activity: Per Instructions section Weightbearing: Right weightbearing Weightbearing Comment: As tolerated with walker Non-emergency contact: Surgeon Call non-emergency contact if: your pain is not controlled, your temperature is above 101, your temperature is above 101.5 and your wound has increased redness Follow-up/Referrals: Hannah Huang M.D. [Primary Care Provider] - Diet: Regular Addtl Attending Provider Instructions: ACTIVITY RECOMMENDATIONS: SELF CARE INSTRUCTIONS AFTER TOTAL KNEE REPLACEMENT A. You may need to continue a physical therapy program after discharge from the hospital. There are several options available to you. Your doctor will assist you in selecting the best one for you. 1. An out-patient facility 2 to 3 times a week for therapy or home therapy. 2. Continue working on all exercises taught to you in the hospital. Your goals should be to increase bending of your knee to 90 degrees and beyond and to fully straighten your knee. B. You may progress at your own pace from walking with a walker or crutches to a cane; then to no assistive devices. C. Make walking a part of your daily routine. Be up as much as comfortable with rest periods throughout the day. Rest with leg elevation is very important. Use the ice wrap frequently for the first 3-4 weeks. D. There are no restrictions on activities. You may ride in a car, shop, participate in buckle gluer and all social activities. E. Wear the long elastic stockings (BETO hose) 20 hours a day for 2 weeks after surgery. They can be removed several times a day for laundering and for a bath. F. You may shower, no tub baths until cleared by your doctor. SPECIAL CARE INSTRUCTIONS: VERY IMPORTANT TO READ AND REVIEW A. There are a few signs you need to watch for after you are home. Call [facility] if you notice any of the followin. Increased severe knee pain. Some pain is expected especially when you exercise. 2. Increased swelling in your leg or knee; pain or swelling of the calf muscle in either lower leg. 3. Any fluid drainage from the incision. 4. Shortness of breath or chest pain. B. Please call [facility] at if you have any concerns or questions about your operation or recovery. The doctor or his nurse will return your call promptly. C. You must take antibiotics before dental work, bladder, bowel or other surgery. Your doctor will provide you with a permanent care to carry describing this precaution. IMPORTANT: * REMEMBER TO TAKE ASPIRIN, 81 MG, TWICE DAILY FOR 4 WEEKS UNLESS OTHERWISE DIRECTED. THIS IS YOUR BLOOD THINNER. * HIGH RISK PATIENTS MAY BE PRESCRIBED A STRONGER BLOOD THINNER. THIS WILL BE PROVIDED AT DISCHARGE. * CALL IF INCREASED PAIN, REDNESS, DRAINAGE OR FEVER GREATER THAT 101. * WEAR BETO HOSE 20 HOURS PER DAY FOR 2 WEEKS. * RACHEAL Dressing - This is a large suction dressing covering your incision. This will help pull any excess drainage from the wound and allow your incision to heal properly. You may shower with this if you can keep the unit outside of the shower. If any bleeding or leakage is noted please call your doctor's office. This will remain on your incision for 7 days and then should be removed. This can be done yourself or by the home nursing staff if applicable. The entire unit is disposable once removed. Once removed, keep incision clean and dry. If redness or drainage is noted, please call your surgeon. [phone] . . FOLLOW UP VISIT: If appointment is not already scheduled: Please call [facility] to make a follow-up appointment for 2 weeks after your surgery at . Stand-Alone Forms: My [employer], Smoking Cessation Medications and DC Order Prescriptions: New aspirin 81 mg Tablet,Delayed Release (Dr/Ec) 81 mg PO BID 30 Days Qty: 60 RF: 0 acetaminophen 500 mg Tablet 1,000 mg PO Q8 14 Days Qty: 84 RF: 0 polyethylene glycol 3350 [Miralax] 17 gram powder in packet 17 g PO DAILY PRN (Reason: constipation) Qty: 5 RF: 0 oxycodone 5 mg Tablet 5 mg PO Q4H MDD 6 PRN (Reason: pain) Qty: 30 RF: 0 Continued multivitamin Tablet 1 tab PO QAM RF: 0 furosemide 40 mg Tablet 40 mg PO QAM RF: 0 atorvastatin 10 mg Tablet 10 mg PO HS RF: 0 citalopram 10 mg Tablet 10 mg PO QAM RF: 0 fexofenadine 180 mg Tablet 180 mg PO QAM RF: 0 amlodipine 5 mg Tablet 5 mg PO QAM RF: 0 losartan-hydrochlorothiazide 100-25 mg Tablet 1 tab PO QAM RF: 0 pantoprazole 40 mg Tablet,Delayed Release (Dr/Ec) 40 mg PO BID RF: 0 albuterol sulfate [Ventolin HFA] 90 mcg/actuation Hfa Aerosol Inhaler 2 puff INHALATION Q6H PRN (Reason: Wheezing) RF: 0 levothyroxine 112 mcg Capsule 112 mcg PO QAM RF: 0 Discontinued aspirin [Aspir-81] 81 mg Tablet,Delayed Release (Dr/Ec) 81 mg PO HS RF: 0 acetaminophen [Tylenol Extra Strength] 500 mg Capsule 1,000 mg PO BID PRN (Reason: Pain) RF: 0 Discharge Orders: Discharge Order (Routine); Ordered 11/13/20 Ordered By: Salas Echols/Other Patient Handouts: DVT Post Op Prevention Admission Data Admit Date/Time: 11/12/20 10:20 Attending Provider: Kemal Mtz Admit Provider: Kemal Mtz Primary Care Provider: Hannah Huang Other Interventions: Discharge Summary Assessment (RN) Last Done: 11/13/20 13:52
== END 2020-11-13 15:30 | disposition home or self-care (01) ==
LOC: 3E 05:44 → ASU 05:44